=== PATIENT | male | born 1990 | race African-American/Black ===

== ENCOUNTER 2021-10-04 19:46 | Emergency (ER) | payer OTHER ==
[2021-10-04] MEDS ORDERED: FOSPHENYTOIN PE 500 MG/10 ML VIAL ONE ×2 (20:49→20:54)
[2021-10-04] MEDS ORDERED: FOSPHENYTOIN PE 100 MG/2 ML VIAL ONE (20:54)
--- NOTE | 2021-10-04 20:57 | RAD REPORT ---
EXAM DESCRIPTION: CT - CTHCSPWOC - 10/04/2021 8:36 pm CLINICAL HISTORY: Seizure, Fall;Pain COMPARISON: No comparisons TECHNIQUE: Axial 5 mm thick images of the head were obtained. Axial 2 mm thick images of the cervic al spine were obtained with sagittal and coronal reconstruction images generated and reviewed. All CT scans are performed using dose optimization technique as appropriate and may include automated exposure control or mA/KV adjustment according to patient size. FINDINGS: No intracranial hemorrhage, mass, edema or acute intracranial finding. No suspicion for ac rashid infarction. No extra-axial fluid collections. Mastoid air cells and paranasal sinuses are clear. No globe or orbit abnormality seen. Cervical body height and alignment are normal. No disk space narrowing. No fracture or acute bony abn ormality. Central canal detail is inherently limited. No paraspinal mass or hematoma. IMPRESSION: Negative CT head examination for acute or significant finding. Negative CT cervical spine examination for acute or significant finding.
[2021-10-04 21:06] LABS: Absolute Lymphocytes (CBC) 1.4 K/uL (0.7-4.9); Lymphocytes % 24.5 % (15.3-44.8); MPV 7.5 fL (7.6-11.3); RBC Red Blood Cell Count 4.39 M/uL (4.33-5.43)
[2021-10-04 21:12] LABS: Protime INR 1.02
[2021-10-04] MEDS ORDERED: NA CHLORIDE 0.9% 250 ML ONE (21:15)
[2021-10-04 21:28] LABS: Urine Blood Negative (Negative); Urine Glucose Negative (Negative); Urine Protein Negative (Negative); Urine Specific Gravity 1.025 (1.005-1.030)
[2021-10-04 21:32] LABS: BUN Blood Urea Nitrogen 17 mg/dL (7-18); Bicarbonate 29 mmol/L (21-32); Glucose Level 104 mg/dL (74-106); Potassium 4.1 mmol/L (3.5-5.1); Sodium Level 142 mmol/L (136-145)
[2021-10-04 21:57] LABS: Barbiturates NEGATIVE (NEGATIVE); Benzodiazepines NEGATIVE (NEGATIVE); Cocaine NEGATIVE (NEGATIVE); METHAMPHETAM POSITIVE (NEGATIVE); Methadone NEGATIVE (NEGATIVE); Opiates NEGATIVE (NEGATIVE); Phencyclidine NEGATIVE (NEGATIVE); THC Cannibis NEGATIVE (NEGATIVE)
[2021-10-04 22:00] LABS: ALT/SGPT 59 U/L (12-78); AST/SGOT 27 U/L (15-37); Alkaline Phosphatase 64 U/L (45-117); Bilirubin Direct 0.1 mg/dL (0-0.2); Bilirubin Total 0.6 mg/dL (0.2-1.0); Protein, Total 7.4 g/dL (6.4-8.2)
[2021-10-04 22:13] LABS: Phenytoin (Dilantin) Level 0.6 ug/mL (10.0-20.0)
--- NOTE | 2021-10-04 22:18 | ER ---
Nurse's Notes [facility] Name: Juno Rivera Age: 30 yrs Sex: Male : 1990 Arrival Date: 10/04/2021 Time: 19:47 Bed 18 Private MD: Diagnosis: Other seizures-medication noncompliance;Methamphetamine Abuse Presentation: 10/04 19:58 Chief complaint: EMS states: "[facility]5 [facility]. He had a witnessed seizure today that lasted 1 min then then officer stated he was confused. He was A\\T\\O x 4 by time we arrived. ". Coronavirus screen: Vaccine status: Patient reports being unvaccinated. Ebola Screen: Patient negative for fever greater than or equal to 101.5 degrees Fahrenheit, and additional compatible Ebola Virus Disease symptoms Patient denies exposure to infectious person. Patient denies travel to an Ebola-affected area in the 21 days before illness onset. Initial Sepsis Screen: Does the patient meet any 2 criteria? No. Patient's initial sepsis screen is negative. Does the patient have a suspected source of infection? No. Patient's initial sepsis screen is negative. Risk Assessment: Do you want to hurt yourself or someone else? Patient reports no desire to harm self or others. Onset of symptoms is unknown. 19:58 Method Of Arrival: EMS: [facility] tw5 19:58 Acuity: BOBBI 3 tw5 Triage Assessment: 20:04 General: Appears in no apparent distress. Behavior is calm, cooperative, appropriate tw5 for age. Pain: Complains of pain in face Pain currently is 6 out of 10 on a pain scale. Neuro: Level of Consciousness is awake, alert, obeys commands, Oriented to person, place, time, situation. Historical: - PMHx: 20:02 Seizure; tw5 - PSHx: 20:02 None; tw5 - Immunization history:: Flu vaccine is not up to date. - Social history:: Smoking status: unknown. Screenin:21 Abuse screen: Denies threats or abuse. Denies injuries from another. Nutritional tw5 screening: No deficits noted. Tuberculosis screening: No symptoms or risk factors identified. Fall Risk None identified. Assessment: 20:21 General: Appears comfortable, well groomed, well developed, well nourished, Behavior is tw5 cooperative, flat. Pain: Denies pain. Neuro: Level of Consciousness is lethargic, Oriented to person, place, time, situation, Appropriate for age Yarn Sizer are equal bilaterally Moves all extremities. Speech is normal, Facial symmetry appears normal, Pupils are PERRLA. Neuro: Seizure activity Patient is post-ictal at this time. Cardiovascular: Capillary refill < 3 seconds is brisk in bilateral fingers. Respiratory: Airway is patent Respiratory effort is even, unlabored, Respiratory pattern is regular, symmetrical, Breath sounds are clear bilaterally. GI: No deficits noted. No signs and/or symptoms were reported involving the gastrointestinal system. : No deficits noted. No signs and/or symptoms were reported regarding the genitourinary system. EENT: No deficits noted. No signs and/or symptoms were reported regarding the EENT system. Derm: No deficits noted. No signs and/or symptoms reported regarding the dermatologic system. Musculoskeletal: No deficits noted. No signs and/or symptoms reported regarding the musculoskeletal system. 21:33 Reassessment: Patient and/or family updated on plan of care and expected duration. Pain tw5 level reassessed. Patient is alert, oriented x 3, equal unlabored respirations, skin warm/dry/pink. Patient back to baseline. Answers question without slow thought process. Patient denies pain at this time. 22:30 Reassessment: Patient and/or family updated on plan of care and expected duration. Pain tw5 level reassessed. Patient is alert, oriented x 3, equal unlabored respirations, skin warm/dry/pink. Patient denies pain at this time. 23:25 Reassessment: D/C per MD order. Discharge/Prescription instructions given to patient tw5 and guards. Verbalized understanding. 10/05 00:53 Reassessment: Patient's ride arrived for transport back to intermediate. tw5 Vital Signs: 10/04 19:58 BP 153 / 104; Pulse 94; Resp 18; Temp 98.1(O); Pulse Ox 100% on R/A; Weight 83.01 kg; tw5 Height 5 ft. 9 in. (175.26 cm); Pain 6/10; 20:21 BP 146 / 105 LA Supine (auto/reg); Pulse 88 MON; Resp 16; Temp 98(O); Pulse Ox 99% ; tw5 Pain 0/10; 21:30 BP 154 / 92 LA Supine (auto/reg); Pulse 86 MON; Resp 18 S; Pulse Ox 98% on R/A; tw5 22:30 BP 129 / 79 LA Supine (auto/reg); Pulse 84 MON; Resp 16 S; Temp 98.5(O); Pulse Ox 100% tw5 ; Pain 0/10; 23:00 BP 142 / 98 LA Supine (auto/reg); Pulse 79 MON; Resp 20 S; Pulse Ox 99% on R/A; Pain tw5 0/10; 19:58 Body Mass Index 27.02 (83.01 kg, 175.26 cm) tw5 [place] Coma Score: 20:04 Eye Response: spontaneous(4). Verbal Response: oriented(5). Motor Response: obeys tw5 commands(6). Total: 15. ED Course: 19:47 Patient arrived in ED. tw5 19:50 Luis Sadler MD is Attending Physician. mh7 20:02 Triage completed. tw5 20:05 Arm band placed on right wrist. tw5 20:05 Seizure precautions initiated. tw5 20:21 Makenzie Perez is Primary Nurse. tw5 20:21 No provider procedures requiring assistance completed. Maintain EMS IV. Dressing tw5 intact. Good blood return noted. Site clean \\T\\ dry. Gauge \\T\\ site: Left AC 20g. 20:37 CT Head C Spine In Process Unspecified. EDMS 22:16 Andrew Liz MD is Referral Physician. [facility] 10/05 00:53 IV discontinued, intact, bleeding controlled, No redness/swelling at site. Pressure tw5 dressing applied. Administered Medications: 10/04 21:13 Dru mg/kg of (Fosphenytoin 20 mg/kg, NS 0.9% 250 ml) Route: IVPB; Rate: calculated tw5 rate; Infused Over: 15 mins; Site: right antecubital; Delivery: Primary tubing; 22:15 Follow up: Response: No adverse reaction; IV Status: Completed infusion; IV Intake: tw5 100ml Intake: 22:15 IV: 100ml; Total: 100ml. tw5 Outcome: 22:17 Discharge ordered by . [facility] 10/05 00:53 Discharged to Law Enforcement tw5 Condition: stable Discharge instructions given to patient, police, Instructed on discharge instructions, follow up and referral plans. medication usage, Demonstrated understanding of instructions, follow-up care, medications. 00:55 Patient left the ED. Signatures: Dispatcher [employer] Luis Escobedo MD MD [facility] Makenzie Perez tw5 Corrections: (The following items were deleted from the chart) 10/04 23:29 20:21 Reassessment: .
--- NOTE | 2021-10-04 22:18 | EDPHYS ---
Physician Documentation [facility] Name: Juno Rivera Age: 30 yrs Sex: Male : 1990 Arrival Date: 10/04/2021 Time: 19:47 Bed 18 Private MD: ED Physician Luis Sadler HPI: 10/04 20:14 This 30 yrs old Male presents to ER via EMS with complaints of Probable Seizure. mh7 20:14 The patient presents after having a single isolated seizure, that lasted 1 minute(s). mh7 Character of seizure(s): Loss of consciousness: the patient experienced loss of consciousness, for 1 minute(s), Motor activity: generalized, shaking all over, Incontinence: none, Apnea: the patient did not experience apnea, Circulation: the patient did not experience evidence of pulse disturbance, Eye movements: are unknown. Seizure onset: just prior to arrival, today. Context: the seizure(s) was witnessed, Correctional officers, occurred Prison, occurred while the patient was sitting, Contributing factors: missed recent doses of medications, Out of meds for 3-4 months. Seizure Hx: Original onset: 2 year(s) ago, Seizure medications: phenytoin. Associated injury: Head/face: back of head, pain, tenderness. Current symptoms: Currently, the patient is not experiencing any symptoms, the patient feels back to baseline. The patient has experienced similar episodes in the past, several times. States that he has not been given his Dilantin in the past 3-4 months by intermediate system.. Historical: - PMHx: 20:02 Seizure; tw5 - PSHx: 20:02 None; tw5 - Immunization history:: Flu vaccine is not up to date. - Social history:: Smoking status: unknown. ROS: 20:14 Constitutional: Negative for fever, chills, and weight loss, Eyes: Negative for injury, mh7 pain, redness, and discharge, ENT: Negative for injury, pain, and discharge, Neck: Negative for injury, pain, and swelling, Cardiovascular: Negative for chest pain, palpitations, and edema, Respiratory: Negative for shortness of breath, cough, wheezing, and pleuritic chest pain, Abdomen/GI: Negative for abdominal pain, nausea, vomiting, diarrhea, and constipation, Back: Negative for injury and pain, : Negative for injury, bleeding, discharge, and swelling, MS/Extremity: Negative for injury and deformity, Skin: Negative for injury, rash, and discoloration, Psych: Negative for depression, anxiety, suicide ideation, homicidal ideation, and hallucinations, Allergy/Immunology: Negative for hives, rash, and allergies, Endocrine: Negative for neck swelling, polydipsia, polyuria, polyphagia, and marked weight changes, Hematologic/Lymphatic: Negative for swollen nodes, abnormal bleeding, and unusual bruising. Exam: 20:14 Constitutional: This is a well developed, well nourished patient who is awake, alert, mh7 and in no acute distress. 20:14 Eyes: Pupils equal round and reactive to light, extra-ocular motions intact. Lids and lashes normal. Conjunctiva and sclera are non-icteric and not injected. Cornea within normal limits. Periorbital areas with no swelling, redness, or edema. Neck: Trachea midline, no thyromegaly or masses palpated, and no cervical lymphadenopathy. Supple, full range of motion without nuchal rigidity, or vertebral point tenderness. No Meningismus. Chest/axilla: Normal chest wall appearance and motion. Nontender with no deformity. No lesions are appreciated. Cardiovascular: Regular rate and rhythm with a normal S1 and S2. No gallops, murmurs, or rubs. Normal PMI, no JVD. No pulse deficits. Respiratory: Lungs have equal breath sounds bilaterally, clear to auscultation and percussion. No rales, rhonchi or wheezes noted. No increased work of breathing, no retractions or nasal flaring. Abdomen/GI: Soft, non-tender, with normal bowel sounds. No distension or tympany. No guarding or rebound. No evidence of tenderness throughout. Back: No spinal tenderness. No costovertebral tenderness. Full range of motion. Skin: Warm, dry with normal turgor. Normal color with no rashes, no lesions, and no evidence of cellulitis. MS/ Extremity: Pulses equal, no cyanosis. Neurovascular intact. Full, normal range of motion. 20:14 Psych: Awake, alert, with orientation to person, place and time. Behavior, mood, and affect are within normal limits. 20:14 Head/face: Noted is tenderness, that is mild, of the posterior scalp. 20:14 Neuro: Orientation: is normal, Mentation: is normal, Memory: is normal, Cranial nerves: grossly normal, Cerebellar function: is grossly normal, Motor: is normal, Sensation: is normal, Gait: not tested. seizure activity, is not displayed by the patient, Abnormal movements: there are no abnormal movements. 21:50 ECG was reviewed by the Attending Physician. [facility] Vital Signs: 19:58 BP 153 / 104; Pulse 94; Resp 18; Temp 98.1(O); Pulse Ox 100% on R/A; Weight 83.01 kg; tw5 Height 5 ft. 9 in. (175.26 cm); Pain 6/10; 20:21 BP 146 / 105 LA Supine (auto/reg); Pulse 88 MON; Resp 16; Temp 98(O); Pulse Ox 99% ; tw5 Pain 0/10; 21:30 BP 154 / 92 LA Supine (auto/reg); Pulse 86 MON; Resp 18 S; Pulse Ox 98% on R/A; tw5 22:30 BP 129 / 79 LA Supine (auto/reg); Pulse 84 MON; Resp 16 S; Temp 98.5(O); Pulse Ox 100% tw5 ; Pain 0/10; 23:00 BP 142 / 98 LA Supine (auto/reg); Pulse 79 MON; Resp 20 S; Pulse Ox 99% on R/A; Pain tw5 0/10; 19:58 Body Mass Index 27.02 (83.01 kg, 175.26 cm) tw5 [place] Coma Score: 20:04 Eye Response: spontaneous(4). Verbal Response: oriented(5). Motor Response: obeys tw5 commands(6). Total: 15. MDM: 22:14 Differential diagnosis: drug overdose, seizure, Medication noncompliance. Data [facility] reviewed: vital signs, nurses notes, EMS record, lab test result(s), CBC, drug level(s), acetaminophen, alcohol, dilantin, salicylate, electrolytes, urinalysis, urine drug screen, EKG, radiologic studies, CT scan. Data interpreted: Pulse oximetry: on room air is 100 %. Interpretation: normal. Counseling: I had a detailed discussion with the patient and/or guardian regarding: the historical points, exam findings, and any diagnostic results supporting the discharge/admit diagnosis, the presence of at least one elevated blood pressure reading (>120/80) during this emergency department visit, lab results, radiology results, the need for outpatient follow up, a neurologist, to return to the emergency department if symptoms worsen or persist or if there are any questions or concerns that arise at home. Response to treatment: the patient's symptoms have resolved after treatment, the patient's blood pressure is in an acceptable range, mental status has returned to baseline, the patient no longer shows bradycardia, the patient is not short of breath, the patient is not tachycardic, the patient's pain is gone, the patient's temperature has normalized, the patient is now symptom free. 22:17 Patient medically screened. [facility] 10/04 20:04 Order name: Acetaminophen; Complete Time: 22:14 [facility] 10/04 20:04 Order name: Basic Metabolic Panel; Complete Time: 22:14 [facility] 10/04 20:04 Order name: CBC with Diff; Complete Time: 21:19 [facility] 10/04 20:04 Order name: ETOH Level; Complete Time: 22:09 [facility] 10/04 20:04 Order name: Hepatic Function; Complete Time: 22:14 [facility] 10/04 20:04 Order name: PT-INR; Complete Time: 21:19 [facility] 10/04 20:04 Order name: Ptt, Activated; Complete Time: 21:19 [facility] 10/04 20:04 Order name: Salicylate; Complete Time: 22:09 [facility] 10/04 20:04 Order name: Urine Drug Screen; Complete Time: 22:09 [facility] 10/04 20:04 Order name: EKG; Complete Time: 20:05 [facility] 10/04 20:04 Order name: Dilantin; Complete Time: 22:14 [facility] 10/04 20:05 Order name: CT Head C Spine; Complete Time: 21:19 7 10/04 21:28 Order name: Urine Dipstick-Ancillary; Complete Time: 21:49 [facility] 10/04 20:04 Order name: EKG - Nurse/Tech; Complete Time: 21:36 [facility] 10/04 20:04 Order name: IV Saline Lock; Complete Time: 20:23 7 10/04 20:04 Order name: Labs collected and sent; Complete Time: 21:23 [facility] 10/04 20:04 Order name: Urine Dipstick-Ancillary (obtain specimen); Complete Time: 21:23 mh7 EC:50 Rate is 91 beats/min. Rhythm is regular, Normal Sinus Rhythm with No ectopy. QRS [place] [facility] is Normal. SC interval is normal. QRS interval is normal. QT interval is normal. No Q waves. T waves are Normal. No ST changes noted. Clinical impression: Normal ECG. Administered Medications: 21:13 Dru mg/kg of (Fosphenytoin 20 mg/kg, NS 0.9% 250 ml) Route: IVPB; Rate: calculated tw5 rate; Infused Over: 15 mins; Site: right antecubital; Delivery: Primary tubing; 22:15 Follow up: Response: No adverse reaction; IV Status: Completed infusion; IV Intake: tw5 100ml Disposition Summary: 10/04/21 22:17 Discharge Ordered Problem: an acute exacerbation [facility] Symptoms: have improved [facility] Condition: Stable [facility] Location: Law Enforcement(10/05/21 00:55) tw5 Diagnosis - Other seizures - medication noncompliance [facility] - Methamphetamine Abuse [facility] Followup: [facility] - With: Private Physician - When: 1 - 2 days - Reason: Worsening of condition, Recheck today's complaints, Continuance of care, Re-evaluation by your physician Followup: [facility] - With: Andrew Liz MD - When: 2 - 3 days - Reason: Worsening of condition, Recheck today's complaints Discharge Instructions: - Discharge Summary Sheet [facility] - Methamphetamines Use Disorder [facility] - Seizure, Adult, [id number] [facility] Forms: - Medication Reconciliation Form [facility] - Thank You Letter [facility] - Antibiotic Education [facility] - Prescription Opioid Use [facility] Prescriptions: - Dilantin Kapseal 100 mg Oral Capsule - take 1 capsule by ORAL route every 8 hours; 30 capsule; Refills: 0, Product [facility] Selection Permitted Signatures: Dispatcher [employer] Luis Escobedo MD MD 7 Makenzie Perez tw Corrections: (The following items were deleted from the chart) 20:24 20:04 Suicide Screening ([place]) ordered. [facility] tw5 10/05 00:55 10/04 22:17 Home [facility] tw5
[2021-10-05 02:29] VITALS: TEMP 98.5
[2021-10-05 02:31] VITALS: BP 142/98; O2SAT 99
--- NOTE | 2021-10-07 11:18 | EKG ---
Test Date: 2021-10-04 Test Time: 21:35:37 Computer Teacher: MEASUREMENT RESULTS: Intervals: Rate: 91 HI: 130 QRSD: 82 QT: 338 QTc: 415 [place]: P: 58 HI: 130 QRS: 88 T: 34 INTERPRETIVE STATEMENTS: Normal sinus rhythm Normal ECG No previous ECG available for comparison Electronically Signed On 10-07-21 11:12:59 CDT by Ernesto Wesley
== END 2021-10-05 00:55 ==
LOC: ER 19:46
DX: G40.89 Other seizures (principal); F15.10 Other stimulant abuse, uncomplicated; Z91.14 Patient's other noncompliance with medication regimen
CPT/HCPCS: 96365; 93005; 85025; 80048; 36415; 80320; 80329 ×2; 85610; 80076; 85730; 80185; 81003; 80307; 70450; 72125; 99284; Q2009 ×3; J7050